=== PATIENT | female | born 1975 | race African-American/Black ===

== ENCOUNTER 2016-10-21 12:07 | Emergency (ER) | payer MEDICAID | END 2016-10-21 14:52 | disposition home or self-care (01) | LOC: D.ER 12:07 | DX: S39.012A Strain of muscle, fascia and tendon of lower back, initial encounter (principal); W01.0XXA Fall on same level from slipping, tripping and stumbling without subsequent striking against object, initial encounter; Y93.89 Activity, other specified; Y92.019 Unspecified place in single-family (private) house as the place of occurrence of the external cause ==